=== PATIENT | male | born 1955 | race Caucasian/White ===

== ENCOUNTER 2016-06-03 22:56 | Emergency (ER) | payer BC ==
[~2016-06-03] VITALS: Ht 170.2 cm; Wt 80.5 kg
[2016-06-03 23:18] LABS: HEMATOCRIT 42.4 % (38.0-50.0); MCH 32.9 PG (29.0-34.0); MCV 96.8 FL (86-99); MEAN PLAT.VOLUME 10.1 uM^3 (9.0-12.4); PLATELET COUNT 233 K/uL (156-360); RBC DIS.WIDTH-SD 42.8 % (39-53); RED BLOOD COUNT 4.38 M/uL (4.00-5.50)
[2016-06-03 23:34] LABS: CHLORIDE 102 mEq/L (99-109); POTASSIUM 4.2 mEq/L (3.7-5.4); SODIUM 139 mEq/L (136-147)
[2016-06-03 23:37] LABS: GLUCOSE 147 mg/dL (70-99)
[2016-06-03 23:38] LABS: ANION GAP 10 MEQ/L (2-14)
[2016-06-03 23:39] LABS: TOTAL BILIRUBIN 0.7 mg/dL (0.0-1.0)
[2016-06-03 23:40] LABS: ALKALINE PHOSPHATASE 66 IU/L (3-129); GFR ESTIMATE (CALCULATED) > 59 mL/min/
[2016-06-03 23:41] LABS: UREA NITROGEN (BUN) 9 mg/dL (9-23)
[2016-06-04] LABS: TROP-I INTERPRETATION NEGATIVE; TROPONIN-I < 0.01 ng/mL (0.0-0.30)
[2016-06-04 01:23] LABS: ADD MIUA? NO; BILIRUBIN NEGATIVE; BLOOD NEGATIVE; COLOR YELLOW ((YELLOW)); GLUCOSE (STRIP) NEGATIVE; KETONES NEGATIVE; LEUKOCYTES NEGATIVE; NITRITE NEGATIVE; PROTEIN (STRIP) NEGATIVE; SPECIFIC GRAVITY 1.005 (1.000-1.030); UCUL ADDED? NO; UROBILINOGEN 0.2 MG/DL (0.2-1.0)
[2016-06-04 02:46] VITALS: BP 134/93
== END 2016-06-04 02:50 | disposition home or self-care (01) ==
LOC: EME 22:56
DX: R00.2 Palpitations (principal); E86.0 Dehydration; R03.0 Elevated blood-pressure reading, without diagnosis of hypertension; Z87.891 Personal history of nicotine dependence
CPT/HCPCS: 71020; 74177; 80053; 81003; 84484; 85027; 93005; 99281; 99285; J7030